=== PATIENT | female | born 2005 | race Asian ===

== ENCOUNTER 2024-10-26 10:35 | Emergency (ER) | payer MEDICAID ==
[~2024-10-26] VITALS: Ht 154.9 cm; Wt 43.1 kg
[2024-10-26 11:38] LABS: CALCIUM, SERUM 9.3 mg/dL (8.5-10.1); CREATININE 0.7 mg/dL (0.6-1.3); POTASSIUM 3.6 mmol/L (3.5-5.1)
[2024-10-26 11:54] LABS: BASOPHILS % (AUTO) 0.3 % (0.0-2.0); EOSINOPHILS % (AUTO) 0.3 % (0.0-6.0); HEMATOCRIT 39 % (33-45); HEMOGLOBIN 12.9 g/dL (11.5-14.8); LYMPHOCYTES # (AUTO) 1.9 K/uL (0.8-4.8); LYMPHOCYTES % (AUTO) 14.1 % (20.0-44.0); MEAN CORPUSCULAR HEMOGLOBIN 27 PG (26.0-33.0); MEAN CORPUSCULAR HGB CONC 33 g/dl (31.0-36.0); MEAN CORPUSCULAR VOLUME 83 fL (82-100); MONOCYTES # (AUTO) 1.1 K/uL (0.1-1.30); NEUTROPHILS # (AUTO) 10.5 K/uL (1.8-8.9); NEUTROPHILS % (AUTO) 77.3 % (43.0-81.0); PLATELET COUNT (AUTO) 287 K/uL (150-450); RED BLOOD CELL COUNT(AUTO) 4.72 MIL/uL (4.0-5.2); RED CELL DISTRIBUTION WIDTH 15.2 % (11.5-15.0); WHITE BLOOD COUNT (AUTO) 13.6 K/uL (4.3-11.0)
[2024-10-26 11:57] LABS: PREGNANCY TEST URINE QUAL NEGATIVE (NEGATIVE)
[2024-10-26 12:01] LABS: INR 1.1 (0.91-1.10); PROTHROMBIN TIME 11.6 SECS (9.2-11.1)
[2024-10-26] MEDS ORDERED: IOHEXOL-350 100 ML VIAL IV ONE (14:18)
[2024-10-26] MEDS ORDERED: IV NS 0.9% 250 ML IV ONE (14:19)
[2024-10-26 16:08] VITALS: BP 129/75; TEMP 98.9; O2SAT 98
== END 2024-10-26 16:09 | disposition home or self-care (01) ==
LOC: ER 10:35
DX: R04.2 Hemoptysis (principal); R05.9 Cough, unspecified; F17.200 Nicotine dependence, unspecified, uncomplicated
CPT/HCPCS: 99285; 71275; 71045; 85025; 80048; 85378; 84703; 36415; 85730; J7050; Q9967